=== PATIENT | female | born 1970 | race Hispanic/Latino ===

== ENCOUNTER 2021-06-25 06:20 | Day surgery (SDC) | payer BC ==
[2021-06-18 13:32] LABS: BASOPHILS % (AUTO) 0.5 % (0.0-5.0); HEMATOCRIT 40.1 % (36-48); LYMPHOCYTES % (AUTO) 42.3 % (21.0-51.0); MEAN CORPUSCULAR HEMOGLOBIN 30.1 pg (27.0-33.0); MEAN CORPUSCULAR HGB CONC 33.4 g/dL (32.0-36.0); MEAN CORPUSCULAR VOLUME 90.1 fL (79-99); MONOCYTES % (AUTO) 8.4 % (3.0-13.0); NEUTROPHILS % (AUTO) 46.6 % (40.0-77.0); PLATELET COUNT (AUTO) 259 K/uL (130-400); RED BLOOD CELL COUNT(AUTO) 4.45 MIL/uL (4.00-5.50); RED CELL DISTRIBUTION WIDTH 12.4 % (11.0-15.5); WHITE BLOOD COUNT (AUTO) 6.1 K/uL (4.8-10.8)
[2021-06-18 13:40] LABS: CREATININE 0.6 mg/dL (0.5-1.5)
[2021-06-24 09:36] VITALS: BP 98/52
[~2021-06-25] VITALS: Ht 154.9 cm; Wt 60.0 kg
[2021-06-25] VITALS (10 sets, daily range): BP systolic 106–122; BP diastolic 53–74
[~2021-06-25 06:20] MED LIST: CEFAZOLIN SODIUM 1 GM VIAL IVP SCH; LACTATED RINGERS 1000ML 1,000 ML IV SCH; MULT-1247 PO; MULT-1367 PO
[2021-06-25] MEDS ORDERED: CLINDAMYCIN IVPB 600MG/50ML 50 ML IV ONE (06:55)
[2021-06-25] MEDS ORDERED: MIDAZOLAM HCL 1 MG/ML 2ML VIAL ONE (07:55)
[2021-06-25] MEDS ORDERED: PROPOFOL 10 MG/ML 20ML VIAL IV ONE (07:56)
[2021-06-25] MEDS ORDERED: KETAMINE 50MG/ML SYRINGE 50 MG/ML DISP.SYRIN IV ONE ×2 (07:57→08:10)
[2021-06-25] MEDS ORDERED: LIDOCAINE HCL 1% 20 ML VIAL ONE (07:58)
[2021-06-25] MEDS ORDERED: BUPIVACAINE/PF 0.5% 30ML VIAL ONE (07:58)
== END 2021-06-25 09:25 | disposition home or self-care (01) ==
LOC: DAH 06:20
PROVIDERS: ATTEND Orthopaedic Surgery
DX: S90.851A Superficial foreign body, right foot, initial encounter (principal); Z20.822 Contact with and (suspected) exposure to COVID-19; Z90.49 Acquired absence of other specified parts of digestive tract; Z98.890 Other specified postprocedural states; Z98.891 History of uterine scar from previous surgery; Z90.710 Acquired absence of both cervix and uterus; X58.XXXA Exposure to other specified factors, initial encounter
CPT/HCPCS: 27310; 36415; 73562; 80048; 85025; 87635; A4215; A4221; A4222; A4223; A4344; A4606; A4663; A5120; A6260; C9803; J2250; J2704; J3490 ×3; J7120